=== PATIENT | male | born 1960 | race Caucasian/White ===

== ENCOUNTER 2020-06-01 08:43 | Outpatient (REF) | payer BC, SELFPAY ==
[2020-06-01 11:06] LABS: MANUAL DIFF FLAG NO
[2020-06-01 11:42] LABS: Basophils Percent Auto 0.9 % (0-2); Eosinophils Absolute Auto 0.1 X10*3/uL (0.0-0.4); Eosinophils Percent Auto 2.1 % (0-4); Hematocrit 48.4 % (42-52); Hemoglobin 16.7 g/dl (14.0-18.0); Imm Gran Abs Auto 0.02 X10*3/uL (0.00-0.03); Imm Gran Pct Auto 0.5 % (0.0-0.4); Lymphocytes Percent Auto 23.8 % (20-40); Mean Corpuscular HGB Conc 34.5 g/dl (31.0-36.0); Mean Corpuscular Hemoglobin 30.4 pg (27.0-33.0); Mean Corpuscular Volume 88.2 fL (80-98); Mean Platelet Volume 9.7 fL (9.4-12.4); Monocytes Absolute Auto 0.4 X10*3/uL (0.1-1.2); Monocytes Percent Auto 8.2 % (2-11); Neutrophils Absolute Auto 2.8 X10*3/uL (2.0-8.3); Neutrophils Percent Auto 64.5 % (45-73); Platelet Count 237 X10*3/uL (160-400); Red Blood Count 5.49 X10*6/uL (4.60-5.80); Red Cell Distribution Width 11.9 % (11.0-16.0); White Blood Count 4.3 X10*3/uL (4.8-10.8)
[2020-06-01 12:27] LABS: Alanine Aminotransferase 45 U/L (0-40); Albumin Level 4.2 g/dL (3.5-5.0); Alkaline Phosphatase 79 U/L (39-117); Anion Gap 11 (12-20); Aspartate Amino Transferase 41 U/L (5-37); Bilirubin Total 2.4 mg/dL (0.0-1.0); Blood Urea Nitrogen 15 mg/dL (9-16); Carbon Dioxide 29 mmol/L (22-29); Chloride 108 mmol/L (96-108); Cholesterol 172 mg/dL; Estimated Glomerular Filt Rate > 60; Glucose Fasting 93 mg/dL (60-99); HDL Cholesterol 45 mg/dL; LDL Cholesterol Calculated 107 mg/dl; Potassium 4.8 mmol/L (3.3-5.1); Sodium 143 mmol/L (135-145); Total Protein 6.8 g/dL (6.5-8.0); Triglycerides 104 mg/dL
[2020-06-01 13:27] LABS: Prostate Specific Antigen 3.25 ng/mL (<0.05-4.0)
== END 2020-06-01 08:44 | disposition home or self-care (01) ==
LOC: HO.MANLDS 08:43
PROVIDERS: PCP Internal Medicine; Visit Provider Internal Medicine
DX: Z00.00 Encounter for general adult medical examination without abnormal findings (principal); Z12.5 Encounter for screening for malignant neoplasm of prostate
CPT/HCPCS: 36415; 80053; 80061; 84153; 85025

== ENCOUNTER 2021-07-30 11:35 | Outpatient (REF) | payer BC, SELFPAY ==
[2021-08-04 15:56] LABS: Testosterone, Total 326 ng/dL (250-1100)
== END 2021-07-30 11:36 | disposition home or self-care (01) ==
LOC: HO.MANLDS 11:35
PROVIDERS: PCP Internal Medicine; Visit Provider Internal Medicine
DX: N52.9 Male erectile dysfunction, unspecified (principal)
CPT/HCPCS: 36415; 84402; 84403

== ENCOUNTER 2021-11-29 10:41 | Outpatient (REF) | payer BC, SELFPAY ==
--- NOTE | ~2021-11-29 | CT_ITS ---
EXAMINATION: MASTOID CT SCAN CLINICAL INFORMATION: Otalgia right ear. COMPARISON: There are no prior studies available for comparison. TECHNIQUE: A noncontrast axial CT scan of the temporal bones was obtained. Multiplanar reformatted images were generated at the technologist workstation. This CT examination was performed using dose optimization techniques as appropriate, variously including the following: *Automated exposure control *Adjustment of mA and/or kV according to patient size (this includes techniques or standardized protocols for targeted exams where dose is matched to indication/reason for exam; i.e. extremities or head) *Use of iterative reconstruction technique DLP: 198 mGy-cm. FINDINGS: Right: The external auditory canal is normal and there is no abnormal thickening of the tympanic membrane. The middle ear cavity is well-aerated. The ossicular chain is intact. There is mild opacification at the right mastoid tip posteriorly. There is dehiscence of the superior semicircular canal. Mineralization within the otic capsule is preserved. The internal auditory canal is unremarkable. The temporomandibular joint is intact. Left: The external auditory canal is normal and there is no abnormal thickening of the tympanic membrane. The middle ear cavity is well-aerated. The ossicular chain is intact. The mastoid air cells are well aerated. The labyrinthine structures are normal. Mineralization within the otic capsule is preserved. The internal auditory canal is unremarkable. The temporomandibular joint is intact. Other: The visualized parotid glands are unremarkable. 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 Limited visualization of the intracranial structures reveals no abnormal findings. There is trace mucosal thickening in the bilateral inferior maxillary sinuses. There is a secondary ostium in the medial wall of the right maxillary sinus. The nasal septum is deviated to the left and there is a left-sided bony nasal septal spur. The ostiomeatal complexes are patent bilaterally.. CT/CT mastoid IMPRESSION: 1. There is dehiscence of the superior semicircular canal on the right. 2. There is mild opacification at the right mastoid tip. 3. The nasal septum is deviated to the left and there is a left-sided bony nasal septal spur.
[2021-11-29] MEDS: iohexoL 350 MG/ML 100 ML INFUS..BTL IV (11:40)
== END 2021-11-29 10:42 | disposition home or self-care (01) ==
LOC: HO.CT 10:41
PROVIDERS: Visit Provider Internal Medicine
DX: H92.01 Otalgia, right ear (principal)
CPT/HCPCS: 70481; Q9967

== ENCOUNTER 2023-03-04 11:17 | Outpatient (REF) | payer BC, SELFPAY ==
[2023-03-04 13:22] LABS: MANUAL DIFF FLAG NO
[2023-03-04 13:45] LABS: Basophils Percent Auto 0.5 % (0-2); Eosinophils Absolute Auto 0.1 X10*3/uL (0.0-0.4); Eosinophils Percent Auto 1.1 % (0-4); Hematocrit 48.6 % (42.0-52.0); Hemoglobin 17.1 g/dl (14.0-18.0); Imm Gran Abs Auto 0.02 X10*3/uL (0.00-0.03); Imm Gran Pct Auto 0.3 % (0.0-0.4); Lymphocytes Absolute Auto 0.9 X10*3/uL (1.2-4.9); Mean Corpuscular HGB Conc 35.2 g/dl (31.0-36.0); Mean Corpuscular Hemoglobin 31.3 pg (27.0-33.0); Mean Platelet Volume 9.8 fL (9.4-12.4); Monocytes Absolute Auto 0.6 X10*3/uL (0.1-1.2); Neutrophils Absolute Auto 4.6 x10*3/uL (2.0-8.3); Neutrophils Percent Auto 74.1 % (45-73); Platelet Count 241 X10*3/uL (160-400); Red Blood Count 5.46 X10*6/uL (4.60-5.80); Red Cell Distribution Width 11.8 % (11.0-16.0); White Blood Count 6.2 X10*3/uL (4.8-10.8)
[2023-03-04 14:08] LABS: Alanine Aminotransferase 131 U/L (0-40); Alkaline Phosphatase 139 U/L (39-117); Anion Gap 8 (12-20); Aspartate Amino Transferase 43 U/L (5-37); Bilirubin Total 3.6 mg/dL (0.0-1.0); Blood Urea Nitrogen 15 mg/dL (9-16); C Reactive Protein 0.37 mg/dL (< or = 0.50); Calcium 9.1 mg/dL (8.4-10.2); Carbon Dioxide 30 mmol/L (22-29); Chloride 105 mmol/L (96-108); Estimated Glomerular Filt Rate > 60; Glucose Random 92 mg/dL (60-115); Potassium 3.9 mmol/L (3.3-5.1); Sodium 139 mmol/L (135-145); Total Protein 6.9 g/dL (6.5-8.0)
== END 2023-03-04 11:18 | disposition home or self-care (01) ==
LOC: HO.MANLDS 11:17
PROVIDERS: Visit Provider Internal Medicine
DX: K80.41 Calculus of bile duct with cholecystitis, unspecified, with obstruction (principal)
CPT/HCPCS: 36415; 80053; 85025; 86140

== ENCOUNTER 2024-09-14 15:19 | Outpatient (REF) | payer BC, SELFPAY ==
--- OUTSIDE RECORDS SUMMARY | 2024-09-14 17:40 | XMS_ITS | Continuity of Care Document ---
Author Organization [facility], [facility] Address [address] [place] [address] [place] [address] Assessment No assessment recorded. Plan of Treatment Reminders Order Date Submit Date Provider Last Modified By Organization Details Last Modified Time Details Appointments Telemedic ine 2024 02:45P M EMMY PEÑA Not available Not available Not available ANNUAL EXAM 2025 10:00A M DR SAMAYOA Not available Not available Not available Lab PSA, total + free, serum or plasma 2024 025 [facility], [address] [place] [address], [id number], 09/14/2024 15:21:55 urinalysi s, dipstick 2024 025 [facility], [address] [place] [address], [address], [place], [address], 09/14/2024 15:02:27 urinalysi s complete, reflex culture 2024 025 [facility], [address] [place] [address], [id number], 09/14/2024 14:57:48 Referral None recorded. Procedures None recorded. Surgeries None recorded. Imaging CT, abdomen + pelvis, w/wo contrast - ongoing hematuria , several episodesh x of trauma to the low back and possibly kidneys 2024 025 [email or web address] [facility] [place], [facility], [facility] [address], [place], [address], 09/14/2024 15:38:44 Medication Orders None recorded. Patient TargetsNo targets recorded. Patient InstructionsNo instructions recorded. Reason for Referral None Reported. Results Created Date Observation Date Name Description Value Unit Range Abnormal Flag Note LastModifiedBy Organization Detail LastModifiedTime 09/15/19 25 09/14/2024 urina lysis , dipst ick Leukocytes Trace Not Available [address], [place], [address], 09/14/2024 14:50:54 09/15/19 25 09/14/2024 urina lysis , dipst ick Nitrite negati ve Not Available [address], [place], [address], 09/14/2024 14:50:54 09/15/19 25 09/14/2024 urina lysis , dipst ick Urobilinogen 1 Not Available [address], [place], [address], 09/14/2024 14:50:54 09/15/19 25 09/14/2024 urina lysis , dipst ick Protein Negati ve Not Available [address], [place], [address], 09/14/2024 14:50:54 09/15/19 25 09/14/2024 urina lysis , dipst ick pH 6.0 Not Available [address], [place], [address], 09/14/2024 14:50:54 09/15/19 25 09/14/2024 urina lysis , dipst ick Blood Small Not Available [address], [place], [address], 09/14/2024 14:50:54 09/15/19 25 09/14/2024 urina lysis , dipst ick Specific [place] 1.020 Not Available [address], [place], [address], 09/14/2024 14:50:54 09/15/19 25 09/14/2024 urina lysis , dipst ick Ketone Small Not Available [facility] Internal [facility] [address], [place], [address], 09/14/2024 14:50:54 09/15/19 25 09/14/2024 urina lysis , dipst ick Bilirubin Negati ve Not Available [facility] Internal [facility] [address], [place], [address], 09/14/2024 14:50:54 09/15/19 25 09/14/2024 urina lysis , dipst ick Glucose Negati ve Not Available [facility] Internal [facility] [address], [place], [address], 09/14/2024 14:50:54 09/15/19 25 09/14/2024 urina lysis , dipst ick Appearance Slight ly Cloudy Not Available [facility] Internal [facility] [address], [place], [address], 09/14/2024 14:50:54 09/15/19 25 09/14/2024 urina lysis , dipst ick Color Yellow Not Available [facility] [address], [place], [address], 09/14/2024 14:50:54 Result Notes None recorded. Problems Name Problem SNOMED Code Status Onset Date Resolution Date Notes Provider Name and Address Organization Details Recorded Time [facility] 96217[facility] Active 2018 Aranza Gatica NP, S [address] [facility], [place], [address], [facility] 9 15:42:34 COVID-19 514236233 Active 202004/10/2020 Eleonora pitts [place] [facility] Internal [facility] 1 14:34:15 Otalgia 25119003 Active 2021 Deacon Samayoa, DO [address] [place] [address], [address], [facility] 2 11:07:24 Otalgia 92537587 Active 2021 Deacon Samayoa, DO [address] [place] [address], [address], 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 2 16:31:49 Mass of lower limb 461745673 Active 2021 Deacon Samayoa DO [address] [place] [address], [address], [facility] 2 16:09:21 Acute cholecys titis 76859155 Active 2022 Deacon Samayoa DO [address] [place] [address], [address], [facility] 3 15:57:23 Calculus of bile duct with obstruct ion 7085755 Active 2022 Deacon Samayoa DO [address] [place] [address], [address], [facility] 3 15:58:07 Cholelit hiasis without obstruct ion 42252900 Active 2022 Deacon Samayoa DO [address] [place] [address], [address], [facility] 3 16:50:50 Pneumoni tis 058146732 Active 2024 Deacon AlysiaEusebio Samayoa, DO [address] [place] [address], [address], [facility] 5 12:07:38 Testicul ar mass 67505564 Active 2024 Deacon Markos Chance, DO [address] [place] [address], [address], [facility] 5 12:21:43 Onychomy cosis of toenails 510658044 Active 2024 Deacon Samayoa, DO [address] [place] [address], [address], [facility] 5 12:22:29 Pain due to varicose veins of lower extremit y 057325555 Active 2024 Deacon Samayoa, DO [address] [place] [address], [address], [facility] 5 12:32:48 Low back pain 585048618 Active 2024 Deacon Samayoa, DO [address] [place] [address], [address], [facility] 5 16:24:22 Thoracic back pain 966929920 Active 2024 Deacon Samayoa, DO [address] [place] [address], [address], 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 5 21:52:56 Seminal vesiculi tis 66002149 Active 2024 EMMY PEÑA [address] [place] [address], [address], [facility] 5 15:04:12 Blood in urine 78961554 Active 2024 EMMY PEÑA [address] [place], [address], [facility] 5 15:08:31 Prostate specific antigen above referenc e range 280949849 Active 2024 EMMY PEÑA [address] [place], [address], [facility] 5 15:16:26 [facility] disorder 55835841 [facility] 10:[facility] Cystitis 10460017 Active 2017 Basiaangel Gonzalez [facility] 8 10:56:53 Epididym itis 93466903 Active 2017 Basiaangel Gonzalez [facility] 8 10:57:03 Subjecti ve visual disturba nce 53309224 Active 2017 visual field loss Basiaangel Gonzalez [facility] 8 10:57:41 Gilbert' s syndrome 35731315 Active 2017 increased Bilirubin Basiaangel Gonzalez [facility] 8 10:59:43 Problem Notes None recorded. Procedures Surgical History Date Name Laterality Status Provider Name and Address Organization Details Recorded Time 01/24/20 22 Colonoscopy completed Deacon Samayoa DO [address] [place] [address], [address], [facility] 01/23/2022 19:04:33 11/30/19 16 Colonoscopy completed Ofelia Cho [facility] 08/10/2018 16:29:32 Appendectomy completed Basiaangel Gonzalez [facility] 09/22/2017 11:00:58 Imaging Results None recorded. Procedure Notes None recorded. Medical Equipment None Reported. Allergies No known drug allergies Medications Name Sig Start Date Stop Date Status Note LastModified by Organization Details LastModified Time celecoxib 200 mg capsule TAKE 1 CAPSULE BY MOUTH EVERY DAY FOR 14 DAYS THEN NEEDED active Not Available Not Available No t Available cyclobenzap rine 10 mg tablet TAKE 1 TABLET BY MOUTH THREE TIMES DAILY FOR 10 DAYS NEEDED active Not Available Not Available No t Available lamotrigine 200 mg tablet TAKE 1 TABLET BY MOUTH EVERY DAY active Not Available Not Available No t Available azithromyci n 250 mg tablet TAKE 2 TABLETS BY MOUTH ONCE DAILY FOR DAY 1 AND THEN 1 TABLET DAILY FOR 4 DAYS active Not Available Not Available No t Available sildenafil 100 mg tablet TAKE 1 TABLET BY MOUTH EVERY DAY NEEDED active Not Available Not Available No t Available terbinafine HCl 250 mg tablet TAKE 1 TABLET BY MOUTH EVERY DAY active Not Available Not Available No t Available amoxicillin 875 mg tablet Take 1 tablet every 12 hours by oral route for 10 days. 10/18 completed Not Available Not Available Not Available benzonatate 100 mg capsule 05/03 completed Not Available Not Available Not Available erythromyci n 5 mg/gram (0.5 %) eye ointment APPLY 1/2 INCH IN LEFT EYE FOUR TIMES DAILY FOR 7 DAYS 02/07 completed Not Available Not Available Not Available oseltamivir 75 mg capsule 08/10 completed Not Available Not Available Not Available lisinopril 5 mg tablet TAKE 1 TABLET BY MOUTH EVERY DAY active Not Available Not Available No t Available methylpredn isolone 4 mg tablets in a dose pack 24 mg PO on day 1, then decr. by 4 mg/day x5 days per dose pack instructi ons 08/10 completed Not Available Not Available Not Available albuterol sulfate HFA 90 mcg/actuati on aerosol inhaler INHALE 2 PUFFS INTO THE LUNGS EVERY 6 HOURS NEEDED active Not Available Not Available No t Available ondansetron 4 mg disintegrat ing tablet active Not Available Not Available N ot Available naproxen 500 mg tablet active Not Available Not Available Not Available amoxicillin 875 mg-karenu m clavulanate 125 mg tablet 05/03 completed Not Available Not Available Not Available oxycodone 5 mg tablet 05/03 completed Not Available Not Available Not Available tadalafil 20 mg tablet TAKE 1 TABLET BY MOUTH EVERY DAY 02/07 completed Not Available Not Available Not Available Afluria Qd 2018- (36 mos up)(PF)60 mcg (15 mcg x4)/0.5 mL IM syringe 05/09 completed Not Available Not Available Not Available Fluarix Quad (PF) 60 mcg (15 mcg x 4)/0.5 mL IM syringe ADM 0.5ML IM UTD 05/09 completed Not Available Not Available Not Available Vitals None Recorded Social History Question Answer Notes LastModified by Organizat ion Details LastModified Time Tobacco Smoking Status Never Smoker Not Available [employer] 02/07/2020 03:36:23 What Is Your Level Of Caffeine Consumption? Occasional 1 7.5 Oz Diet Coke Per Day [id number] Information not available 02/07/2020 What Was The Date Of Your Most Recent Tobacco Screening? 06/01/2024 [email or web address] Information not available 06/01/2024 Sex: Unknown Functional Status Question Answer Note LastModified by Organizat ion Details LastModified Time Do you or have you ever used any other forms of tobacco or nicotine? No [email or web address] Information not available 02/07/2022 What is your level of alcohol consumption? Moderate 4-5 beers per week [id number] Information not available 02/07/2020 What is your exercise level? Moderate [id number] Information not available 02/07/2020 Mental Status None recorded. Family History Nothing Reported. Medical History No medical history recorded. Immunizations Vaccine Type Date Status Note Provider Nam e and Address Organization Details Recorded Time Influenza, split virus, quadrivalent, preservative 2 completed Deacon Samayoa DO [address] [place] [address], [address] 02/07/2022 15:30:40 Tdap 9 gregg pitts [facility] 09/17/2018 15:31:17 Influenza, split virus, quadrivalent, preservative 9 gregg pitts [facility] 05/09/2020 15:50:49 Influenza, split virus, quadrivalent, preservative 0 gregg pitts [facility] 05/09/2020 15:51:07 Past Encounters Encounter ID Performer Location Encounter Start Date Encounter Closed Date Diagnosis/Indication Diagnosis SNOMED-CT Code Diagnosis ICD10 Code Diagnosis Note [id number] Deacon Samayoa DO [facility] [address] [place] [address],[place] [address] 09/14/2024 14:38:17 09/14/2024 15:38:44 Blood in urine 59817892 R31.9 recommende d imaging for his urinary symptoms given recurrent episodes Seminal vesiculitis 2700 [address]9 [address]49.[address] up [address] imagingsen ding out urine for patient Prostate s pecific antigen above reference range 905705035 R97.20 set up with recheck PSA Health Concerns Section Related Observation LastModified by Organization Detai ls LastModified Time None Recorded Concern Status LastModified by Organization Details LastModified Time None Recorded Payers Encounter Date Sequence Insurance Name Policy Number Policy Rueda Covered Member ID Rueda Member ID Guarantor Name 09/14/2024 1 [id number] Whitneysirena Berkowitz [id number] [address] Notes Date Note Type Note Provider Name a nd Address Organization Details Recorded Time 09/14/2024 text/html c/o blood in the urine, multiple episodes the patient reports that he has been noticing a few episodes of hematuriathe patient reports that he has also had spermaturia as well, light pinkthe patient notes darker blood in the urine the patient reports that he did take a fall in the winter which he has since been having back pain, low back and also has been having recurrent aches in his back around his kidneysonly imaging that he had was the XR lumbosacral, thoracic, cervicalno further imaging may be getting an MRI lumbar spine with orthowill f/u with them about it EMMY PEÑA [address] [place] [address], [place], [address], [facility] 09/14/2024 15:17:37
[2024-09-14 18:35] LABS: Appearance Urine Clear; Color Urine Yellow; Glucose Urine UA Negative (Negative); Leukocyte Esterase Urine Negative (Negative); Nitrite Urine Negative (Negative); PH 6.5 (5.0-9.0); UMIC TRIGGER UACC YES; Urine Blood Trace (Negative); Urine Ketones Negative (Negative); Urine Protein Negative (Neg-Trace)
[2024-09-14 18:40] LABS: Bacteria Urine None Seen (None Seen); Hyaline Casts Urine 0-2 /LPF (0-2); Squamous Epithelial Cell Urine 0-2 /HPF (0-2); WBC Urine 0-5 /HPF (0-5)
[2024-09-14 18:50] LABS: Prostate Specific Antigen 4.14 ng/mL (<0.05-4.0)
== END 2024-09-14 15:20 | disposition home or self-care (01) ==
LOC: HO.MANLDS 15:19
PROVIDERS: Visit Provider Physician Assistant
DX: R31.9 Hematuria, unspecified (principal)
CPT/HCPCS: 36415; 81001; 84153